=== PATIENT | male | born 1945 | race Caucasian/White ===

== ENCOUNTER 2017-02-05 18:44 | Emergency (ER) | payer BC ==
[~2017-02-05] VITALS: Ht 177.8 cm; Wt 66.7 kg
[2017-02-05] MEDS ORDERED: CLON1TAB PO (18:56)
[2017-02-05] MEDS ORDERED: CARB-93 PO (18:56)
[2017-02-05] MEDS ORDERED: MULT-1045 PO (18:56)
[2017-02-05] MEDS ORDERED: ASPI-1094 PO (18:56)
[2017-02-05] MEDS ORDERED: LEVO88TA5 PO (18:56)
--- NOTE | 2017-02-05 19:00 | NUR ---
care endorsed by day shift nurse, pt resting in bed, alert, oriented x 4, no resp distress noted or reported upon assessment...
--- NOTE | 2017-02-05 20:16 | NUR ---
Patient discharged to home in stable conditon. Written and verbal after care instructions given. Patient verbalizes understanding of instructions. pt walked out of ER unassisted with belongings at side...
[2017-02-05 20:17] VITALS: BP 131/97
== END 2017-02-05 20:23 | disposition home or self-care (01) ==
LOC: ER 18:49
DX: S61.211A Laceration without foreign body of left index finger without damage to nail, initial encounter (principal); Z79.82 Long term (current) use of aspirin; W45.8XXA Other foreign body or object entering through skin, initial encounter; Y93.89 Activity, other specified; Y99.8 Other external cause status; Y92.89 Other specified places as the place of occurrence of the external cause
CPT/HCPCS: A4663; J3490

== ENCOUNTER 2017-02-07 08:14 | Emergency (ER) | payer BC ==
[~2017-02-07 08:14] MED LIST: ASPI-1094 PO; CARB-93 PO; CLON1TAB PO; LEVO88TA5 PO; MULT-1045 PO
--- NOTE | 2017-02-07 08:20 | NUR ---
CALLED PT FOR TRIAGE. PT NOT IN THE WAITNG ROOM, NEITHER OUTSIDE THE WAITING ROOM.
== END 2017-02-07 08:49 | disposition left against medical advice (07) ==
LOC: ER 08:14
DX: Z53.21 Procedure and treatment not carried out due to patient leaving prior to being seen by health care provider (principal)

== ENCOUNTER 2017-02-15 15:06 | Emergency (ER) | payer BC ==
[~2017-02-15] VITALS: Ht 180.3 cm; Wt 70.3 kg
--- NOTE | 2017-02-15 15:20 | NUR ---
REMOVED THE STICHES FROM LEFT INDEX FINGER.
== END 2017-02-15 15:28 | disposition home or self-care (01) ==
LOC: ER 15:06
DX: S61.211D Laceration without foreign body of left index finger without damage to nail, subsequent encounter (principal); E03.9 Hypothyroidism, unspecified; Z79.82 Long term (current) use of aspirin; X58.XXXD Exposure to other specified factors, subsequent encounter; Y92.89 Other specified places as the place of occurrence of the external cause; Y99.8 Other external cause status
CPT/HCPCS: A4663

== ENCOUNTER 2017-09-27 08:34 | Emergency (ER) | payer BC, MEDICARE ==
[~2017-09-27] VITALS: Ht 182.9 cm; Wt 63.5 kg
--- NOTE | 2017-09-27 11:19 | NUR ---
Patient discharged to home in stable conditon. Written and verbal after care instructions given to patient. Patient verbalizes understanding of instructions. Affected finger dressing is dry & intact, pt denies pains.
== END 2017-09-27 11:52 | disposition home or self-care (01) ==
LOC: ER 08:35
DX: S61.213A Laceration without foreign body of left middle finger without damage to nail, initial encounter (principal); E03.9 Hypothyroidism, unspecified; G20 Parkinson's disease; Z79.82 Long term (current) use of aspirin; W26.8XXA Contact with other sharp object(s), not elsewhere classified, initial encounter; Y93.89 Activity, other specified; Y92.89 Other specified places as the place of occurrence of the external cause; Y99.8 Other external cause status
CPT/HCPCS: 99283; A4217; A4663

== ENCOUNTER 2017-09-30 07:48 | Emergency (ER) | payer BC, MEDICARE ==
[~2017-09-30] VITALS: Ht 177.8 cm; Wt 63.5 kg
--- NOTE | 2017-09-30 08:08 | NUR ---
DR Otto at the bedside for eval and exam.
--- NOTE | 2017-09-30 08:21 | NUR ---
Cleaned and dried wound on Lt middle finger at nail bed. dressing applied per MD order.
[2017-09-30 08:22] VITALS: BP 118/70
--- NOTE | 2017-09-30 08:23 | NUR ---
Patient discharged to home in stable conditon. Written and verbal after care instructions given. Patient verbalizes understanding of instructions.
== END 2017-09-30 08:23 | disposition home or self-care (01) ==
LOC: ER 07:48
DX: Z48.00 Encounter for change or removal of nonsurgical wound dressing (principal); G20 Parkinson's disease; Z79.82 Long term (current) use of aspirin; E03.9 Hypothyroidism, unspecified
CPT/HCPCS: 99283; A4217; A4663

== ENCOUNTER 2024-09-07 14:10 | Inpatient (IN) | payer MEDICARE, OTHER ==
[~2024-09-07] VITALS: Ht 175.3 cm; Wt 50.5 kg
[2024-09-07 15:06] LABS: BASOPHILS # (AUTO) 0.1 K/UL (0.0-0.2); BASOPHILS % (AUTO) 0.7 % (0.0-2.0); EOSINOPHILS # (AUTO) 0.3 K/uL (0.0-0.7); EOSINOPHILS % (AUTO) 3.6 % (0.0-7.0); HEMATOCRIT 36.3 % (36.7-47.1); HEMOGLOBIN 12.1 g/dL (12.5-16.3); LYMPHOCYTES # (AUTO) 0.8 K/uL (0.8-4.8); MEAN CORPUSCULAR HEMOGLOBIN 29.6 uug (23.8-33.4); MEAN CORPUSCULAR HGB CONC 33 g/dL (32.5-36.3); MEAN CORPUSCULAR VOLUME 88.6 fL (73.0-96.2); MONOCYTES # (AUTO) 0.7 K/uL (0.1-1.30); MONOCYTES % (AUTO) 8.3 % (0.0-11.0); NEUTROPHILS # (AUTO) 6.5 K/uL (1.8-8.9); NEUTROPHILS % (AUTO) 77.4 % (38.5-71.5); PLATELET COUNT (AUTO) 380 K/uL (152-348); RED BLOOD CELL COUNT(AUTO) 4.09 MIL/uL (4.06-5.63); RED CELL DISTRIBUTION WIDTH 16.2 % (12.1-16.2); WHITE BLOOD COUNT (AUTO) 8.4 K/uL (3.6-10.2)
[2024-09-07 15:10] LABS: DIFFERENTIAL COMMENT 1
[2024-09-07 15:16] LABS: CALCIUM 8.4 mg/dL (8.5-10.1); CARBON DIOXIDE 30 mmol/L (21-32); CHLORIDE 107 mmol/L (98-107); CREATININE 0.9 mg/dL (0.6-1.3); GLUCOSE 140 mg/dL (74-106); POTASSIUM 4.2 mmol/L (3.5-5.1); SODIUM SERUM 145 mmol/L (136-145); UREA NITROGEN, BLOOD 23 mg/dL (7-18)
[2024-09-07 15:28] LABS: ALANINE AMINOTRANSFERASE 11 U/L (16-63); ALBUMIN 2.6 g/dL (3.4-5.0); ALKALINE PHOSPHATASE 75 U/L (50-136); ASPARTATE AMINOTRANSFERASE 11 U/L (15-37); BILIRUBIN,DIRECT 0.1 mg/dL (0.0-0.2); BILIRUBIN,TOTAL 0.6 mg/dL (0.2-1.0); NT-PRO BNP 462 pg/mL (0-125); TOTAL PROTEIN, SERUM 6.2 g/dL (6.4-8.2)
[2024-09-07] MEDS ORDERED: AZITHROMYCIN 500MG/ D5W 250ML IVPB **ER PYXIS ONLY IV ONE (16:35)
[2024-09-07] MEDS ORDERED: CEFTRIAXONE /D5W 50ML IVPB **ER PYXIS IV ONE (16:35)
[2024-09-07] MEDS: CEFTRIAXONE 1 G in IV DEXTROSE 5% 50 ML IV ONE (16:40)
[2024-09-07] MEDS ORDERED: FLUD0.1T PO (16:53)
[2024-09-07] MEDS ORDERED: DICL100G31 TP (16:53)
[2024-09-07] MEDS ORDERED: CARB1TAB21 PO (16:53)
[2024-09-07] MEDS ORDERED: MIDO2.5T PO (16:53)
[2024-09-07] MEDS ORDERED: LEVO150T8 PO (16:53)
[2024-09-07] MEDS ORDERED: MELA3CAP2 PO (16:53)
[2024-09-07] MEDS ORDERED: NA P133E RC (16:53)
[2024-09-07] MEDS ORDERED: ACET-2030 PO (16:53)
[2024-09-07] MEDS ORDERED: GABA100C PO (16:53)
[2024-09-07] MEDS ORDERED: MAGN400O6 PO (16:53)
[2024-09-07] MEDS ORDERED: CARB1TAB13 PO (16:53)
[2024-09-07] MEDS ORDERED: BISA10SU61 RC (16:53)
[2024-09-07] MEDS: AZITHROMYCIN IV 500 MG in IV DEXTROSE 5% 250 ML IV ONE (17:09)
[2024-09-07] MEDS ORDERED: BISACODYL 10 MG SUPP.RECT RC PRN (17:30)
[2024-09-07] MEDS ORDERED: ONDANSETRON 4 MG/2 ML VIAL IV PRN (17:30)
[2024-09-07] MEDS ORDERED: MAGNESIUM HYDROXIDE 30 ML LIQUID UDC PO PRN ×2 (17:30)
[2024-09-07] MEDS ORDERED: FLEET ENEMA 133 ML BOTTLE RC PRN (17:30)
[2024-09-07] MEDS ORDERED: ACETAMINOPHEN 325 MG TABLET PO PRN (17:30)
[2024-09-07] MEDS ORDERED: REMEDY ESSENTIAL ZINC PASTE 113 GM TP PRN (17:30)
[2024-09-07] MEDS: CEFTRIAXONE 1 G in IV DEXTROSE 5% 50 ML IV SCH (17:30)
[2024-09-07] MEDS: AZITHROMYCIN IV 500 MG in IV DEXTROSE 5% 250 ML IV SCH (17:30)
[2024-09-07] MEDS: ENOXAPARIN SODIUM 40 MG/0.4 ML DISP.SYRIN SQ SCH (17:51)
[2024-09-07] MEDS ORDERED: MELATONIN PO SCH (18:00)
[2024-09-07] MEDS ORDERED: ENOXAPARIN SODIUM 40 MG/0.4 ML DISP.SYRIN SQ SCH (19:59)
[2024-09-07 20:20] VITALS: BP 127/72; TEMP 97.7; O2SAT 95
[2024-09-07] MEDS: CARBIDOPA/LEVODOPA 25-100MG TABLET PO SCH (21:16)
[2024-09-07] MEDS: CLONAZEPAM 1 MG TABLET PO SCH (21:16)
[2024-09-07] MEDS: MELATONIN 3 MG TABLET PO SCH (21:16)
[2024-09-08] VITALS (7 sets, daily range): BP systolic 88–145; BP diastolic 55–79; TEMP 97.7–98.4; O2SAT 90–96
[2024-09-08 06:56] LABS: BASOPHILS # (AUTO) 0.1 K/UL (0.0-0.2); BASOPHILS % (AUTO) 0.9 % (0.0-2.0); EOSINOPHILS # (AUTO) 0.4 K/uL (0.0-0.7); EOSINOPHILS % (AUTO) 6.4 % (0.0-7.0); HEMATOCRIT 34.2 % (36.7-47.1); HEMOGLOBIN 11.9 g/dL (12.5-16.3); LYMPHOCYTES # (AUTO) 1.4 K/uL (0.8-4.8); LYMPHOCYTES % (AUTO) 20.3 % (20.5-51.5); MEAN CORPUSCULAR HEMOGLOBIN 30.6 uug (23.8-33.4); MEAN CORPUSCULAR HGB CONC 35 g/dL (32.5-36.3); MEAN CORPUSCULAR VOLUME 88.2 fL (73.0-96.2); MONOCYTES # (AUTO) 0.7 K/uL (0.1-1.30); MONOCYTES % (AUTO) 9.5 % (0.0-11.0); NEUTROPHILS # (AUTO) 4.4 K/uL (1.8-8.9); NEUTROPHILS % (AUTO) 62.9 % (38.5-71.5); PLATELET COUNT (AUTO) 333 K/uL (152-348); RED BLOOD CELL COUNT(AUTO) 3.88 MIL/uL (4.06-5.63); RED CELL DISTRIBUTION WIDTH 15.6 % (12.1-16.2); WHITE BLOOD COUNT (AUTO) 6.9 K/uL (3.6-10.2)
[2024-09-08] MEDS: LEVOTHYROXINE SODIUM 150 MCG TABLET PO SCH (07:00)
[2024-09-08 07:20] LABS: MAGNESIUM 2.1 mg/dL (1.8-2.4)
[2024-09-08 07:21] LABS: CALCIUM 8.5 mg/dL (8.5-10.1); CARBON DIOXIDE 33 mmol/L (21-32); CHLORIDE 107 mmol/L (98-107); CREATININE 0.9 mg/dL (0.6-1.3); GLUCOSE 89 mg/dL (74-106); POTASSIUM 3.8 mmol/L (3.5-5.1); SODIUM SERUM 144 mmol/L (136-145); UREA NITROGEN, BLOOD 21 mg/dL (7-18)
[2024-09-08 07:25] LABS: DIFFERENTIAL COMMENT 1
[2024-09-08 07:56] LABS: THYROID STIMULATING HORMONE 8.845 mIU/mL (0.358-3.740)
[2024-09-08] MEDS ORDERED: [UNRECOGNIZED DRUG - OTHER] PO SCH (09:00)
[2024-09-08] MEDS ORDERED: Medication Not On Formulary EA (Multivitamin (Multi-Vitamin Daily) 1 EACH) PO SCH (09:00)
[2024-09-08] MEDS ORDERED: LEVODOPA PO SCH (09:00)
[2024-09-08] MEDS ORDERED: CARBIDOPA PO SCH (09:00)
[2024-09-08] MEDS ORDERED: ENTACAPONE PO SCH (09:00)
[2024-09-08] MEDS: GABAPENTIN 100 MG CAPSULE PO SCH (09:21)
[2024-09-08] MEDS: PANTOPRAZOLE SODIUM 40 MG VIAL IV SCH (09:21)
[2024-09-08] MEDS: MULTIVITAMINS,THERAPEUTIC TABLET PO SCH (09:21)
[2024-09-08] MEDS: FLUDROCORTISONE ACETATE 0.1 MG TABLET PO SCH (09:21)
[2024-09-08] MEDS: ENTACAPONE 200 MG TABLET PO SCH (09:22)
[2024-09-08] MEDS: MIDODRINE HCL 2.5 MG TABLET PO SCH (09:22)
[2024-09-08] MEDS: ENOXAPARIN SODIUM 40 MG/0.4 ML DISP.SYRIN SQ SCH (09:27)
[2024-09-08] MEDS: CARBIDOPA/LEVODOPA 25-100MG TABLET PO SCH ×2 (09:31→14:11)
[2024-09-08] MEDS: CEFTRIAXONE 1 G in IV DEXTROSE 5% 50 ML IV SCH (17:53)
[2024-09-08] MEDS: AZITHROMYCIN IV 500 MG in IV DEXTROSE 5% 250 ML IV SCH (18:34)
[2024-09-09] VITALS: BP 101/65; TEMP 97.9; O2SAT 95
[2024-09-09] MEDS: ENTACAPONE 200 MG TABLET PO SCH (02:18)
[2024-09-09] MEDS: CARBIDOPA/LEVODOPA 25-100MG TABLET PO SCH ×2 (02:20→06:26)
[2024-09-09 04:00] VITALS: BP 102/66; TEMP 98.1; O2SAT 96
[2024-09-09 07:52] LABS: BASOPHILS # (AUTO) 0.1 K/UL (0.0-0.2); BASOPHILS % (AUTO) 1.7 % (0.0-2.0); EOSINOPHILS # (AUTO) 0.3 K/uL (0.0-0.7); EOSINOPHILS % (AUTO) 5.7 % (0.0-7.0); HEMATOCRIT 35.9 % (36.7-47.1); HEMOGLOBIN 12.2 g/dL (12.5-16.3); LYMPHOCYTES # (AUTO) 1.4 K/uL (0.8-4.8); LYMPHOCYTES % (AUTO) 27.7 % (20.5-51.5); MEAN CORPUSCULAR HGB CONC 34 g/dL (32.5-36.3); MONOCYTES # (AUTO) 0.5 K/uL (0.1-1.30); MONOCYTES % (AUTO) 9.8 % (0.0-11.0); NEUTROPHILS # (AUTO) 2.8 K/uL (1.8-8.9); NEUTROPHILS % (AUTO) 55.1 % (38.5-71.5); PLATELET COUNT (AUTO) 326 K/uL (152-348); RED BLOOD CELL COUNT(AUTO) 4.08 MIL/uL (4.06-5.63); RED CELL DISTRIBUTION WIDTH 15.7 % (12.1-16.2)
[2024-09-09 08:00] VITALS: BP 110/73; TEMP 96; O2SAT 94
[2024-09-09 08:01] LABS: DIFFERENTIAL COMMENT 1
[2024-09-09 08:09] LABS: CALCIUM 8.3 mg/dL (8.5-10.1); CARBON DIOXIDE 31 mmol/L (21-32); CHLORIDE 106 mmol/L (98-107); CREATININE 0.7 mg/dL (0.6-1.3); GLUCOSE 105 mg/dL (74-106); POTASSIUM 3.8 mmol/L (3.5-5.1); SODIUM SERUM 142 mmol/L (136-145); UREA NITROGEN, BLOOD 17 mg/dL (7-18)
[2024-09-09] MEDS: ENSURE WITH FIBER 237 ML LIQUID (CHOCOLATE) PO SCH (09:14)
[2024-09-09 12:00] VITALS: BP 104/63; TEMP 96.2; O2SAT 94
[2024-09-09 16:00] VITALS: BP 125/71; TEMP 97; O2SAT 92
[2024-09-09 19:00] VITALS: BP 115/66; TEMP 98.7; O2SAT 98
[2024-09-10 06:00] VITALS: BP 108/65; TEMP 98; O2SAT 95
[2024-09-10 07:07] LABS: BASOPHILS # (AUTO) 0.1 K/UL (0.0-0.2); BASOPHILS % (AUTO) 0.6 % (0.0-2.0); EOSINOPHILS # (AUTO) 0.3 K/uL (0.0-0.7); EOSINOPHILS % (AUTO) 2.7 % (0.0-7.0); HEMATOCRIT 34.8 % (36.7-47.1); LYMPHOCYTES # (AUTO) 1.3 K/uL (0.8-4.8); LYMPHOCYTES % (AUTO) 12.9 % (20.5-51.5); MEAN CORPUSCULAR HGB CONC 34 g/dL (32.5-36.3); MEAN CORPUSCULAR VOLUME 87.3 fL (73.0-96.2); MONOCYTES # (AUTO) 0.4 K/uL (0.1-1.30); MONOCYTES % (AUTO) 4.4 % (0.0-11.0); NEUTROPHILS # (AUTO) 7.7 K/uL (1.8-8.9); NEUTROPHILS % (AUTO) 79.4 % (38.5-71.5); PLATELET COUNT (AUTO) 321 K/uL (152-348); RED BLOOD CELL COUNT(AUTO) 3.99 MIL/uL (4.06-5.63); RED CELL DISTRIBUTION WIDTH 15.9 % (12.1-16.2); WHITE BLOOD COUNT (AUTO) 9.7 K/uL (3.6-10.2)
[2024-09-10 07:13] LABS: DIFFERENTIAL COMMENT 1
[2024-09-10 07:23] LABS: CALCIUM 8.3 mg/dL (8.5-10.1); CARBON DIOXIDE 29 mmol/L (21-32); CHLORIDE 105 mmol/L (98-107); CREATININE 0.7 mg/dL (0.6-1.3); GLUCOSE 108 mg/dL (74-106); POTASSIUM 4.5 mmol/L (3.5-5.1); SODIUM SERUM 141 mmol/L (136-145); UREA NITROGEN, BLOOD 16 mg/dL (7-18)
[2024-09-10] MEDS ORDERED: CEFD300C3 PO (10:05)
[2024-09-10 11:16] VITALS: BP 105/65; TEMP 98.2; O2SAT 94
[2024-09-10 13:05] VITALS: BP 105/65
== END 2024-09-10 14:00 | DRG 177 ==
LOC: ER 14:10 → TELE3 20:08 → MEDSURG3 09-09 12:05
DX: J15.69 Pneumonia due to other Gram-negative bacteria (principal); E43 Unspecified severe protein-calorie malnutrition; J96.01 Acute respiratory failure with hypoxia; N17.0 Acute kidney failure with tubular necrosis; Z68.1 Body mass index [BMI] 19.9 or less, adult; J15.9 Unspecified bacterial pneumonia; Z66 Do not resuscitate; E88.09 Other disorders of plasma-protein metabolism, not elsewhere classified; F41.9 Anxiety disorder, unspecified; G20.A1 Parkinson's disease without dyskinesia, without mention of fluctuations; I48.91 Unspecified atrial fibrillation; D64.9 Anemia, unspecified; D75.839 Thrombocytosis, unspecified; E03.9 Hypothyroidism, unspecified; I10 Essential (primary) hypertension
CPT/HCPCS: 36415; 71045; 83605; 83735; 84100; 84443; 84484; 85025; 87040; G0378; J0456; J0696; J1650; J2470; J7050